=== PATIENT | male | born 1955 | race Caucasian/White ===

== ENCOUNTER 2024-12-27 12:04 | Outpatient (CLI) | payer OTHER ==
--- NOTE | 2024-12-27 13:29 | RADIOLOGY REPORT ---
EXAM: CT BIOMETSET SHOULDER LEFT INDICATION: OSTEOARTHRITIS,LT SHOULDER PAIN, BIOMET PROTOCOL TECHNIQUE: Axial images of left shoulder have been obtained along with coronal and sagittal reformatted images. All CT scans at this facility use dose modulation, iterative reconstruction, and/or weight based dosing when appropriate to reduce radiation dose to as low as reasonably achievable. COMPARISON: None FINDINGS: BONES: No CT evidence of an acute fracture or aggressive osseous lesion. 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 JOINT SPACES: No joint effusion. TENDONS/LIGAMENTS: Intact. OTHER: None. IMPRESSION: 1. Successful CT surgical planning.
== END 2024-12-27 23:59 | disposition home or self-care (01) ==
LOC: RAD 12:04
PROVIDERS: ATTEND Physician Assistant
DX: M19.012 Primary osteoarthritis, left shoulder (principal); M25.512 Pain in left shoulder
CPT/HCPCS: 73200